=== PATIENT | female | born 1935 | race Caucasian/White ===

== ENCOUNTER 2019-11-14 14:32 | Emergency (ER) | payer MEDICARE, OTHER ==
[~2019-11-14] VITALS: Ht 157.5 cm; Wt 59.0 kg
[~2019-11-14 14:32] MED LIST: GLUCHON; HYDSUL200; NAPR220; SULF500A
[2019-11-14 15:19] LABS: BASOPHILS ABSOLUTE AUTO 0.06 K/mm3 (0.00-0.23); BASOPHILS PERCENT AUTO 1 % (0-2); EOSINOPHILS ABSOLUTE AUTO 0.07 K/mm3 (0.00-0.68); EOSINOPHILS PERCENT AUTO 1 % (0-6); Hematocrit 40.1 % (33.0-51.0); Hemoglobin 13.2 g/dL (11.5-16.0); IMMATURE GRAN ABSOLUTE AUTO 0.27 K/mm3 (0.00-0.10); IMMATURE GRAN PERCENT AUTO 3 % (0-1); LYMPHOCYTES PERCENT AUTO 27 % (21-46); MONOCYTES PERCENT AUTO 7 % (4-13); Mean Corpuscular HGB 30.8 pg (26.0-34.0); Mean Corpuscular HGB Conc 32.9 g/dL (31.5-36.5); Mean Corpuscular Volume 94 fL (80-100); Mean Platelet Volume 10.3 fL (9.1-12.4); NEUTROPHILS ABSOLUTE AUTO 5.28 K/mm3 (1.96-9.15); NEUTROPHILS PERCENT AUTO 62 % (41-73); Platelet Count 290 K/mm3 (150-400); RDW Coefficient Variation 13.8 % (11.7-14.2); RDW Standard Deviation 47.4 fL (35.1-46.3); Red Blood Cell Count 4.28 M/mm3 (3.80-5.20); White Blood Cell Count 8.58 K/mm3 (4.00-11.30)
[2019-11-14 15:39] LABS: Alanine Aminotransfer (ALT/SGP 22 U/L (12-78); Albumin, Blood 3.7 g/dL (3.4-5.0); Albumin/Globulin Ratio 0.9 (0.8-1.8); Alk Phos 60 U/L (50-136); Anion Gap 9 mmol/L (6-16); Aspartate Aminotrans (AST/SGOT 38 U/L (12-37); Bilirubin, Total 0.6 mg/dL (0.1-1.0); Blood Urea Nitrogen 13 mg/dL (8-24); Bun/Creatinine Ratio 21.1 (12.0-20.0); CO2, Blood 23 mmol/L (21-32); Calcium, Blood 8.7 mg/dL (8.5-10.1); Chloride, Blood 98 mmol/L (98-108); Creatinine, Blood 0.62 mg/dL (0.40-1.00); Globulin, Blood 4.1 g/dL (2.2-4.0); Glomerular Filtration Rate >60 (60-); Glucose, Blood 108 mg/dL (70-99); Magnesium, Blood 2.2 mg/dL (1.6-2.4); Potassium, Blood 4.2 mmol/L (3.5-5.5); Sodium, Blood 130 mmol/L (136-145); Total Protein, Blood 7.8 g/dL (6.4-8.2); Troponin I <0.015 ng/mL (0.000-0.040)
[2019-11-14 15:42] LABS: International Normalized Ratio 0.96; Prothrombin Time Results 10.3 Sec (9.7-11.5)
== END 2019-11-14 17:11 | disposition home or self-care (01) ==
LOC: ER 14:32
PROVIDERS: Emergency Medicine
DX: R42 Dizziness and giddiness (principal); R10.9 Unspecified abdominal pain; Z88.0 Allergy status to penicillin; Z88.1 Allergy status to other antibiotic agents
CPT/HCPCS: 71275; 74175; 80053; 83735; 84484; 85025; 85610; 86850; 86900; 86901; 93005; 93010; 99285-25; Q9967

== ENCOUNTER 2020-11-05 07:19 | Day surgery (SDC) | payer MEDICARE, OTHER ==
[~2020-11-05] VITALS: Ht 157.5 cm; Wt 55.9 kg
[~2020-11-05 07:19] MED LIST changes: +ALBU90OI INH; +ASCO500 PO; +ASPIR 8181 M1 PO; +CLON.1 PO; +FLONASE SENSIM5.9 M1; +FOLI1 PO; +FURO20 PO; +HYDRA25 PO; +LISI20 PO; +MAGCIT300 PO; +Norco 7.5-3251 EACH PO; +PROLIA60 MG/1 ML SC; +TUMS500 MG PO; +Triamcinolone A15 G3 TOP; +VOLTAREN ARTHRI20 GM TOP; +Vitamin B Comple1 EA PO; +XELJANZ5 MG PO
--- NOTE | 2020-11-05 11:12 | NUR ---
Ambulatory in Day Surgery Discharge instructions reviewed with patient. Patient verbalizes understanding. Copy given to patient to take home.Lungs clear T/O to Auscultation. Patient States Post-Procedure ride home has been arranged. Discharged via wheelchair to private car for ride home. Discharge instructions reviewed with patient. Patient verbalizes understanding. Copy given to patient to take home.
== END 2020-11-05 11:14 | disposition home or self-care (01) ==
LOC: ORSCMMR 07:19 → ORD 08:30 → ORSCMMR 11:14
PROVIDERS: Surgery
PROC: 0WQF0ZZ Repair Abdominal Wall, Open Approach (ICD-10-PCS; principal; 2020-11-05 08:30)
DX: K43.6 Other and unspecified ventral hernia with obstruction, without gangrene (principal); I10 Essential (primary) hypertension; J44.9 Chronic obstructive pulmonary disease, unspecified; G51.0 Bell's palsy; Z79.899 Other long term (current) drug therapy; M35.00 Sjogren syndrome, unspecified; M06.9 Rheumatoid arthritis, unspecified; Z79.82 Long term (current) use of aspirin; Z87.891 Personal history of nicotine dependence
CPT/HCPCS: J0171; J0690; J1100; J2405; J2704; J3010; J7120

== ENCOUNTER 2021-03-11 01:11 | Day surgery (SDC) | payer MEDICARE, OTHER | END 2021-03-11 23:06 | disposition home or self-care (01) | LOC: WOUND 01:11 | DX: L97.812 Non-pressure chronic ulcer of other part of right lower leg with fat layer exposed (principal); I87.2 Venous insufficiency (chronic) (peripheral); I87.311 Chronic venous hypertension (idiopathic) with ulcer of right lower extremity | CPT/HCPCS: A9270; G0463 ==

== ENCOUNTER 2021-03-18 01:56 | Day surgery (SDC) | payer MEDICARE, OTHER | END 2021-03-18 12:00 | disposition home or self-care (01) | LOC: WOUND 01:56 | DX: L97.812 Non-pressure chronic ulcer of other part of right lower leg with fat layer exposed (principal); I87.2 Venous insufficiency (chronic) (peripheral); I87.311 Chronic venous hypertension (idiopathic) with ulcer of right lower extremity | CPT/HCPCS: A9270 ==

== ENCOUNTER 2021-03-25 01:33 | Day surgery (SDC) | payer MEDICARE, OTHER | END 2021-03-25 23:11 | disposition home or self-care (01) | LOC: WOUND 01:33 | DX: L97.812 Non-pressure chronic ulcer of other part of right lower leg with fat layer exposed (principal) | CPT/HCPCS: A9270 ==

== ENCOUNTER 2021-04-01 01:43 | Day surgery (SDC) | payer MEDICARE, OTHER | END 2021-04-01 23:23 | disposition home or self-care (01) | LOC: WOUND 01:43 | DX: L97.812 Non-pressure chronic ulcer of other part of right lower leg with fat layer exposed (principal); I87.2 Venous insufficiency (chronic) (peripheral); I87.311 Chronic venous hypertension (idiopathic) with ulcer of right lower extremity | CPT/HCPCS: A9270 ==

== ENCOUNTER 2021-04-08 01:34 | Day surgery (SDC) | payer MEDICARE, OTHER | END 2021-04-08 23:14 | disposition home or self-care (01) | LOC: WOUND 01:34 | DX: L97.812 Non-pressure chronic ulcer of other part of right lower leg with fat layer exposed (principal) | CPT/HCPCS: A9270 ==

== ENCOUNTER 2021-04-15 08:00 | Day surgery (SDC) | payer MEDICARE, OTHER | END 2021-04-15 23:59 | disposition home or self-care (01) | LOC: WOUND 08:00 | DX: I87.311 Chronic venous hypertension (idiopathic) with ulcer of right lower extremity (principal); L97.912 Non-pressure chronic ulcer of unspecified part of right lower leg with fat layer exposed; I87.2 Venous insufficiency (chronic) (peripheral) ==

== ENCOUNTER 2021-04-23 04:30 | Day surgery (SDC) | payer MEDICARE, OTHER | END 2021-04-23 23:38 | disposition home or self-care (01) | LOC: WOUND 04:30 | DX: I87.311 Chronic venous hypertension (idiopathic) with ulcer of right lower extremity (principal); L97.812 Non-pressure chronic ulcer of other part of right lower leg with fat layer exposed; I87.2 Venous insufficiency (chronic) (peripheral) | CPT/HCPCS: G0463 ==

== ENCOUNTER 2021-04-30 05:21 | Day surgery (SDC) | payer MEDICARE, OTHER | END 2021-04-30 22:59 | disposition home or self-care (01) | LOC: WOUND 05:21 | DX: I87.311 Chronic venous hypertension (idiopathic) with ulcer of right lower extremity (principal); L97.912 Non-pressure chronic ulcer of unspecified part of right lower leg with fat layer exposed; I87.2 Venous insufficiency (chronic) (peripheral) | CPT/HCPCS: G0463 ==

== ENCOUNTER 2023-07-12 12:42 | Day surgery (SDC) | payer MEDICARE, OTHER | END 2023-07-12 23:22 | disposition home or self-care (01) | LOC: WOUND 12:42 | DX: L89.892 Pressure ulcer of other site, stage 2 (principal); T81.31XD Disruption of external operation (surgical) wound, not elsewhere classified, subsequent encounter; I87.2 Venous insufficiency (chronic) (peripheral); I73.9 Peripheral vascular disease, unspecified; L97.929 Non-pressure chronic ulcer of unspecified part of left lower leg with unspecified severity; Y83.8 Other surgical procedures as the cause of abnormal reaction of the patient, or of later complication, without mention of misadventure at the time of the procedure | CPT/HCPCS: G0463 ==

== ENCOUNTER 2023-07-19 01:42 | Day surgery (SDC) | payer MEDICARE, OTHER | END 2023-07-19 23:40 | disposition home or self-care (01) | LOC: WOUND 01:42 | DX: S81.802D Unspecified open wound, left lower leg, subsequent encounter (principal); I87.2 Venous insufficiency (chronic) (peripheral); I87.312 Chronic venous hypertension (idiopathic) with ulcer of left lower extremity | CPT/HCPCS: G0463 ==

== ENCOUNTER 2023-07-28 01:50 | Day surgery (SDC) | payer MEDICARE, OTHER | END 2023-07-28 23:10 | disposition home or self-care (01) | LOC: WOUND 01:50 | DX: I87.312 Chronic venous hypertension (idiopathic) with ulcer of left lower extremity (principal); L89.892 Pressure ulcer of other site, stage 2; T81.31XD Disruption of external operation (surgical) wound, not elsewhere classified, subsequent encounter; Y83.8 Other surgical procedures as the cause of abnormal reaction of the patient, or of later complication, without mention of misadventure at the time of the procedure | CPT/HCPCS: A6213; G0463 ==

== ENCOUNTER 2023-10-05 04:44 | Day surgery (SDC) | payer MEDICARE, OTHER ==
[2023-10-05] MEDS ORDERED: Lidocaine HCl 4% Cream 5 GM ONE (11:27)
== END 2023-10-05 23:04 | disposition home or self-care (01) ==
LOC: WOUND 04:44
DX: S81.802A Unspecified open wound, left lower leg, initial encounter (principal); S81.801A Unspecified open wound, right lower leg, initial encounter; X58.XXXA Exposure to other specified factors, initial encounter; I87.312 Chronic venous hypertension (idiopathic) with ulcer of left lower extremity; I87.2 Venous insufficiency (chronic) (peripheral)
CPT/HCPCS: A6213; A9270; G0463

== ENCOUNTER 2023-10-12 02:51 | Day surgery (SDC) | payer MEDICARE, OTHER ==
[2023-10-12] MEDS ORDERED: Lidocaine HCl 4% Cream 5 GM ONE (15:15)
== END 2023-10-12 22:59 | disposition home or self-care (01) ==
LOC: WOUND 02:51
DX: S81.802A Unspecified open wound, left lower leg, initial encounter (principal); S81.801A Unspecified open wound, right lower leg, initial encounter; X58.XXXA Exposure to other specified factors, initial encounter; I87.312 Chronic venous hypertension (idiopathic) with ulcer of left lower extremity; I87.2 Venous insufficiency (chronic) (peripheral)
CPT/HCPCS: A6213; A9270; G0463

== ENCOUNTER 2023-10-20 05:24 | Day surgery (SDC) | payer MEDICARE, OTHER | END 2023-10-20 22:44 | disposition home or self-care (01) | LOC: WOUND 05:24 | DX: I87.312 Chronic venous hypertension (idiopathic) with ulcer of left lower extremity (principal); L97.822 Non-pressure chronic ulcer of other part of left lower leg with fat layer exposed; I87.2 Venous insufficiency (chronic) (peripheral) ==

== ENCOUNTER 2024-05-06 02:59 | Day surgery (SDC) | payer MEDICARE, OTHER ==
[~2024-05-06 02:59] MED LIST changes: +CATAPRES0.1 MG PO; +Calcium Carbon500 MG PO; +DOCU100 PO; +DULERA 100 MCG/13 GM INH; +GUAI600T33 PO; -LISI20 PO; +MELO7.5 PO; +METO25 PO; +METO25ER PO; +MIRALAX17 GM PO; +MORP15ER PO; +NEURONTIN300 MG PO; +OXAYDO5 M1 PO; +OXYC5 PO; +POTA8 PO; +Percocet 5-3251 EACH PO; +Prinivil10 MG PO; +Senna-Extra17.2 MG PO
[2024-05-06] MEDS ORDERED: Lidocaine HCl 4% Cream 5 GM ONE (13:11)
== END 2024-05-06 23:23 | disposition home or self-care (01) ==
LOC: WOUND 02:59
DX: L89.133 Pressure ulcer of right lower back, stage 3 (principal); T81.31XD Disruption of external operation (surgical) wound, not elsewhere classified, subsequent encounter; L97.322 Non-pressure chronic ulcer of left ankle with fat layer exposed; M06.9 Rheumatoid arthritis, unspecified; J44.9 Chronic obstructive pulmonary disease, unspecified; I10 Essential (primary) hypertension; Y83.8 Other surgical procedures as the cause of abnormal reaction of the patient, or of later complication, without mention of misadventure at the time of the procedure
CPT/HCPCS: A6213; A9270; G0463

== ENCOUNTER 2024-05-14 04:56 | Day surgery (SDC) | payer MEDICARE, OTHER | END 2024-05-15 00:07 | disposition home or self-care (01) | LOC: WOUND 04:56 | DX: T81.31XD Disruption of external operation (surgical) wound, not elsewhere classified, subsequent encounter (principal); L89.113 Pressure ulcer of right upper back, stage 3; S81.802D Unspecified open wound, left lower leg, subsequent encounter; M19.071 Primary osteoarthritis, right ankle and foot; Z96.662 Presence of left artificial ankle joint | CPT/HCPCS: 73600; 73610; A6213; G0463 ==

== ENCOUNTER 2024-05-21 04:13 | Day surgery (SDC) | payer MEDICARE, OTHER | END 2024-05-21 23:00 | disposition home or self-care (01) | LOC: WOUND 04:13 | DX: T81.31XD Disruption of external operation (surgical) wound, not elsewhere classified, subsequent encounter (principal); L89.113 Pressure ulcer of right upper back, stage 3; L89.150 Pressure ulcer of sacral region, unstageable | CPT/HCPCS: A6213; G0463 ==

== ENCOUNTER 2024-05-28 04:45 | Day surgery (SDC) | payer MEDICARE, OTHER ==
[2024-05-28] MEDS ORDERED: Lidocaine HCl 4% Cream 5 GM ONE (14:43)
== END 2024-05-28 23:00 | disposition home or self-care (01) ==
LOC: WOUND 04:45
DX: L89.153 Pressure ulcer of sacral region, stage 3 (principal); L89.113 Pressure ulcer of right upper back, stage 3; L97.322 Non-pressure chronic ulcer of left ankle with fat layer exposed; T81.31XD Disruption of external operation (surgical) wound, not elsewhere classified, subsequent encounter; Y83.8 Other surgical procedures as the cause of abnormal reaction of the patient, or of later complication, without mention of misadventure at the time of the procedure
CPT/HCPCS: A6213; A9270; G0463

== ENCOUNTER 2024-06-21 06:21 | Day surgery (SDC) | payer MEDICARE, OTHER ==
[2024-06-21] MEDS ORDERED: Lidocaine HCl 4% Cream 5 GM ONE (11:24)
== END 2024-06-21 23:00 | disposition home or self-care (01) ==
LOC: WOUND 06:21
DX: L89.153 Pressure ulcer of sacral region, stage 3 (principal); L89.113 Pressure ulcer of right upper back, stage 3; L97.322 Non-pressure chronic ulcer of left ankle with fat layer exposed
CPT/HCPCS: A6213; A9270